=== PATIENT | male | born 1985 | race Caucasian/White ===

== ENCOUNTER 2020-08-07 09:24 | Outpatient (REF) | payer OTHER, SELFPAY ==
[2020-08-09 19:32] LABS: TS Negative Control Passed; TS Panel A 0; TS Panel B 0; TS Positive Control Passed; TSpotTB Negative (SeeBelow)
== END 2020-08-07 09:25 | disposition home or self-care (01) ==
LOC: HO.LAB 09:24
PROVIDERS: PCP Internal Medicine; Visit Provider Internal Medicine
DX: Z11.9 Encounter for screening for infectious and parasitic diseases, unspecified (principal)
CPT/HCPCS: 36415; 86481

== ENCOUNTER 2021-01-01 11:53 | Outpatient (REF) | payer OTHER, SELFPAY ==
[2021-01-01 13:58] LABS: Glucose Urine UA NEG (NEG); Leukocyte Esterase Urine NEG (NEG); Nitrite Urine NEG (NEG); Specific Gravity - Urine 1.015 (1.005-1.025); Urine Blood NEG (NEG); Urine Ketones NEG (NEG); Urine Protein NEG (NEG-TRACE)
[2021-01-01 14:01] LABS: Appearance Urine CLEAR; Color Urine YELLOW
[2021-01-01 14:01] LABS: Hematocrit 46.4 % (42-52); Hemoglobin 15.1 g/dl (14.0-18.0); Mean Corpuscular HGB Conc 32.5 g/dl (31.0-36.0); Mean Corpuscular Hemoglobin 28.3 pg (27.0-33.0); Mean Corpuscular Volume 86.9 fL (80-98); Mean Platelet Volume 9.5 fL (9.4-12.4); Platelet Count 320 X10*3/uL (160-400); Red Blood Count 5.34 X10*6/uL (4.60-5.80); Red Cell Distribution Width 12.3 % (11.0-16.0); White Blood Count 8.1 X10*3/uL (4.8-10.8)
[2021-01-01 14:25] LABS: Alanine Aminotransferase 26 U/L (0-40); Albumin Level 4.6 g/dL (3.5-5.0); Alkaline Phosphatase 56 U/L (39-117); Anion Gap 13 (12-20); Aspartate Amino Transferase 22 U/L (5-37); Bilirubin Direct 0.3 mg/dL (0.0-0.5); Bilirubin Total 0.5 mg/dL (0.0-1.0); Blood Urea Nitrogen 12 mg/dL (9-16); Calcium 9.6 mg/dL (8.4-10.2); Carbon Dioxide 29 mmol/L (22-29); Chloride 105 mmol/L (96-108); Cholesterol 152 mg/dL; Estimated Glomerular Filt Rate > 60; Glucose Random 97 mg/dL (60-115); HDL Cholesterol 32 mg/dL; LDL Cholesterol Calculated 99 mg/dl; Potassium 4.8 mmol/L (3.3-5.1); Sodium 142 mmol/L (135-145); Total Protein 7.5 g/dL (6.5-8.0); Triglycerides 105 mg/dL
== END 2021-01-01 11:54 | disposition home or self-care (01) ==
LOC: HO.LAB 11:53
PROVIDERS: PCP Internal Medicine; Visit Provider Internal Medicine
DX: Z00.01 Encounter for general adult medical examination with abnormal findings (principal)
CPT/HCPCS: 36415; 80048; 80061; 80076; 81003; 85027

== ENCOUNTER 2021-03-08 20:52 | Emergency (ER) | payer OTHER, SELFPAY ==
[2021-03-08 21:22] VITALS: BP 130/87; PULSE 65; RESP 16; TEMP 36.9; O2SAT 98; BMI 34.2
--- NOTE | 2021-03-08 21:48 | ED_ITS ---
HPI - Dental/Oral General Chief complaint: Dental/Oral Stated complaint: dental pain Time Seen by Provider: 03/08/21 21:35 Source: patient Mode of arrival: ambulatory Limitations: no limitations History of Present Illness HPI Narrative: 35 y/o male presenting with left upper tooth pain for the last 2 weeks. He is due to see his dentist on 03/17 for extraction of a broken upper left molar. He has been taking Aleve intermittently for pain with brief improvement. Pain is worse when he lays down or eats. He denies facial swelling or fevers. MD Complaint: tooth pain Location: Tooth # Teeth map: 1. #15 - broken decaying tooth Onset (ago): week(s) Duration: constant Severity: severe Severity scale (1-10): 9 Relieving factors: NSAIDs Exacerbating factors: chewing, cold and heat Context: history of dental caries and poor dental care Associated symptoms: gum swelling Treatment prior to arrival: oral analgesic Related Data Previous Rx's Medication Instructions Recorded hydrocortisone 1 % topical cream 1 appl [place] DAILY 14 Days #28.4 g 01/16/21 with perineal applicator ibuprofen 800 mg tablet 800 mg PO Q8H PRN #15 tab 03/08/21 penicillin V potassium 500 mg 500 mg PO TID 7 Days #21 tab 03/08/21 tablet tramadol 50 mg tablet 50 mg PO Q8H PRN #7 tab 03/08/21 Allergies Allergy/AdvReac Type Severity Reaction Status Date / Time No Known Allergies Allergy Verified 03/08/21 21:22 Review of Systems Constitutional: Constitutional: Denies chills, Denies fever(s) and Reports headache(s) Eyes: Eyes: Reports no additional eye complaints ENT: Reports Normal hearing present, Denies bleeding gums, Reports dental pain , Denies dysphagia, Denies otalgia, Denies facial pain, Reports headache(s), Denies mouth lesions, Reports mouth pain, Denies neck pain, Denies sore throat, Denies throat swelling and Denies tongue swelling Cardiovascular: Cardiovascular: Denies chest pain Respiratory: Respiratory: Denies cough Gastrointestinal: Gastrointestinal: Denies dysphagia, Denies nausea and Denies vomiting Musculoskeletal: Musculoskeletal: Denies neck pain Neurologic: Reports Normal hearing present and Reports headache(s) Allergic/Immunologic: Allergic/Immunologic: Denies throat swelling and Denies tongue swelling PMF Past Medical History Medical History Bloody stools Blurry vision Hemorrhoid History of hypoglycemia Mood disorder Obesity Surgical History History of tooth extraction Family History Family History Mother No problems noted. Father No problems noted. Social History Social History (Updated 01/16/21 @ 08:37 by Dionne Dixon MD) Housing: House Alcohol intake: never Patient Tobacco Use Status: Never used Tobacco Tobacco use type: Cigarette e-Cigarette/Vaping Use: Never Used Second Hand Smoke Exposure: No Advance Directives: No service: No Current occupational status: employed Current occupational exposures/hazards: No Physical Exam Vital Signs: Vital Signs: Last Vital Signs Temp 98.5 F 03/08/21 21:22 Pulse 65 03/08/21 21:22 Resp 16 03/08/21 21:22 BP 130/87 03/08/21 21:22 Pulse Ox 98 03/08/21 21:22 Body Mass Index 34.2 Const: General: cooperative, healthy appearing, comfortable and no acute distress Nutritional Appearance: average body habitus Orientation/consciousness: patient oriented x3 Limitations: no limitations HENMT: Head: Yes normal to inspection, Yes normocephalic and Yes atraumatic Ears: hearing grossly normal bilaterally and external ears normal General nose exam: Normal external nose present and Normal nares present Face and sinus: Yes normal facial exam and Yes face symmetric Mouth: Normal oral and palatal mucosa present, lip normal, tongue normal, oropharynx normal and moist mucous membranes Teeth and gingiva: abnormal tooth and associated gingiva upp er left second molar tender, with associated gingival edema and enamel fractured and gingiva abnormal edematous and tender; Negative for without any purulent discharge Throat: Yes posterior oropharynx normal, Yes tonsils normal and Yes uvula midline Eyes: General: appearance normal, both eyes and all related structures Neck: Neck: Yes normal visual inspection and Yes no lymphadenopathy Chest: Chest palpation & inspection: normal inspection of the chest Resp: Effort & Inspection: normal respiratory effort and able to speak in complete sentences Skin: General skin exam: no rashes or lesions noted Neuro: General: patient oriented x3, gait normal and moves all extremities Cranial nerves: Yes Normal hearing present Extrem: General: Yes normal to inspection and Yes full ROM Psych: Appearance: grossly normal and well kempt Mental Status: mental status grossly normal Speech and movement: Normal speech and movement present Course Course Course Narrative: 35 y/o male presenting with left upper molar pain x2 weeks, due for extraction 03/17. No evidence of abscess on exam. Will treat with abx, NSAID and pain medication until he can be seen by his dentist. Stable for d/c home, patient agrees with plan. Critical Care Time Critical Care Time Critical Care Time: No Discharge Plan Discharge Clinical Impression: Toothache Patient Disposition: Home, Self-Care Instructions: Toothache (ED) Additional Instructions: Take all of the the prescribed medications as directed Also recommend taking Tylenol 1,000 mg every 6 hours, maximum dose is 4,000 mg in a 24 hour period. Recommend over the counter Orajel - topical pain medication to help numb the tooth Follow up with your dentist as scheduled on 03/17/21 If you develop new or worsening symptoms call 911 or come back to the ER for fur ther evaluation. Prescriptions: New ibuprofen 800 mg tablet 800 mg PO Q8H PRN (Reason: pain) Qty: 15 RF: 0 penicillin V potassium 500 mg tablet 500 mg PO TID 7 Days Qty: 21 RF: 0 tramadol 50 mg tablet 50 mg PO Q8H PRN (Reason: pain) Qty: 7 RF: 0 No Action hydrocortisone 1 % cream with perineal applicator 1 appl [place] DAILY 14 Days Qty: 28.4 RF: 2
== END 2021-03-08 22:40 | disposition home or self-care (01) ==
PROVIDERS: Emergency Provider Emergency Medicine; PCP Internal Medicine
DX: K08.89 Other specified disorders of teeth and supporting structures (principal)
CPT/HCPCS: 99283

== ENCOUNTER 2021-11-19 07:03 | Outpatient (REF) | payer OTHER, SELFPAY ==
[2021-11-19 07:17] LABS: MANUAL DIFF FLAG NO
[2021-11-19 07:30] LABS: Basophils Percent Auto 0.5 % (0-2); Eosinophils Absolute Auto 0.1 X10*3/uL (0.0-0.4); Eosinophils Percent Auto 1.2 % (0-4); Hematocrit 47.9 % (42.0-52.0); Hemoglobin 15.9 g/dl (14.0-18.0); Imm Gran Abs Auto 0.01 X10*3/uL (0.00-0.03); Imm Gran Pct Auto 0.1 % (0.0-0.4); Lymphocytes Absolute Auto 2.6 X10*3/uL (1.2-4.9); Lymphocytes Percent Auto 32.2 % (20-40); Mean Corpuscular HGB Conc 33.2 g/dl (31.0-36.0); Mean Corpuscular Volume 84.5 fL (80.0-98.0); Mean Platelet Volume 8.9 fL (9.4-12.4); Monocytes Absolute Auto 0.6 X10*3/uL (0.1-1.2); Monocytes Percent Auto 7.8 % (2-11); Neutrophils Absolute Auto 4.8 x10*3/uL (2.0-8.3); Neutrophils Percent Auto 58.2 % (45-73); Platelet Count 308 X10*3/uL (160-400); Red Blood Count 5.67 X10*6/uL (4.60-5.80); Red Cell Distribution Width 12.2 % (11.0-16.0); White Blood Count 8.2 X10*3/uL (4.8-10.8)
[2021-11-19 07:58] LABS: Alanine Aminotransferase 35 U/L (0-40); Albumin Level 4.5 g/dL (3.5-5.0); Alkaline Phosphatase 52 U/L (39-117); Anion Gap 10 (12-20); Aspartate Amino Transferase 23 U/L (5-37); Bilirubin Total 0.7 mg/dL (0.0-1.0); Blood Urea Nitrogen 12 mg/dL (9-16); Calcium 9.7 mg/dL (8.4-10.2); Carbon Dioxide 31 mmol/L (22-29); Chloride 104 mmol/L (96-108); Cholesterol 166 mg/dL; Estimated Glomerular Filt Rate > 60; Glucose Fasting 99 mg/dL (60-99); HDL Cholesterol 34 mg/dL; LDL Cholesterol Calculated 111 mg/dl; Potassium 4.6 mmol/L (3.3-5.1); Sodium 140 mmol/L (135-145); Total Protein 6.9 g/dL (6.5-8.0); Triglycerides 105 mg/dL
[2021-11-19 08:19] LABS: PSA,Total (Free>4and<10) 0.37 ng/mL (0.00-4.00)
== END 2021-11-19 07:04 | disposition home or self-care (01) ==
LOC: HO.LAB 07:03
PROVIDERS: PCP Internal Medicine; Visit Provider Internal Medicine
DX: E66.9 Obesity, unspecified (principal); Z12.5 Encounter for screening for malignant neoplasm of prostate
CPT/HCPCS: 36415; 80053; 80061; 84153; 85025

== ENCOUNTER → 2021-12-23 09:59 | Outpatient (REF) | payer OTHER, SELFPAY | LOC: HO.SL 09:59 | PROVIDERS: PCP Internal Medicine; Visit Provider Internal Medicine | DX: G47.33 Obstructive sleep apnea (adult) (pediatric) (principal); R40.0 Somnolence | CPT/HCPCS: 95806 ==

== ENCOUNTER 2022-01-27 15:38 | Outpatient (REF) | payer OTHER, SELFPAY ==
--- NOTE | ~2022-01-27 | XR_ITS ---
EXAMINATION: XR SPINE, CERVICAL XR SPINE, THORACIC XR SPINE, LUMBAR CLINICAL INFORMATION: Low back pain. COMPARISON: None TECHNIQUE: Cervical spine 4 views. Dorsal spine 2 views. Lumbar spine 4 views. FINDINGS: Cervical Spine: There is mild straightening of cervical lordosis. The vertebral heights, alignment and disc heights are normal. There is no visible acute fracture, dislocation or subluxation seen. Dorsal Spine: There is normal thoracic kyphosis. The vertebral heights, alignment and disc heights are normal. There is no acute fracture, dislocation or subluxation. The paravertebral soft tissues are normal. Lumbar Spine: There is normal lumbar lordosis. The vertebral heights, alignment and disc heights are normal. No visible acute fracture, dislocation or subluxation seen. The paravertebral soft tissues are normal. XR/XR cervical spine 2V IMPRESSION: Unremarkable cervical spine exam except for mild straightening of cervical lordosis. Unremarkable dorsal spine exam. Unremarkable lumbar spine exam.
--- NOTE | ~2022-01-27 | XR_ITS ---
EXAMINATION: XR SPINE, CERVICAL XR SPINE, THORACIC XR SPINE, LUMBAR CLINICAL INFORMATION: Low back pain. COMPARISON: None TECHNIQUE: Cervical spine 4 views. Dorsal spine 2 views. Lumbar spine 4 views. FINDINGS: Cervical Spine: There is mild straightening of cervical lordosis. The vertebral heights, alignment and disc heights are normal. There is no visible acute fracture, dislocation or subluxation seen. Dorsal Spine: There is normal thoracic kyphosis. The vertebral heights, alignment and disc heights are normal. There is no acute fracture, dislocation or subluxation. The paravertebral soft tissues are normal. Lumbar Spine: There is normal lumbar lordosis. The vertebral heights, alignment and disc heights are normal. No visible acute fracture, dislocation or subluxation seen. The paravertebral soft tissues are normal. XR/XR lumbar spine 2-3V IMPRESSION: Unremarkable cervical spine exam except for mild straightening of cervical lordosis. Unremarkable dorsal spine exam. Unremarkable lumbar spine exam.
--- NOTE | ~2022-01-27 | XR_ITS ---
EXAMINATION: XR SPINE, CERVICAL XR SPINE, THORACIC XR SPINE, LUMBAR CLINICAL INFORMATION: Low back pain. COMPARISON: None TECHNIQUE: Cervical spine 4 views. Dorsal spine 2 views. Lumbar spine 4 views. FINDINGS: Cervical Spine: There is mild straightening of cervical lordosis. The vertebral heights, alignment and disc heights are normal. There is no visible acute fracture, dislocation or subluxation seen. Dorsal Spine: There is normal thoracic kyphosis. The vertebral heights, alignment and disc heights are normal. There is no acute fracture, dislocation or subluxation. The paravertebral soft tissues are normal. Lumbar Spine: There is normal lumbar lordosis. The vertebral heights, alignment and disc heights are normal. No visible acute fracture, dislocation or subluxation seen. The paravertebral soft tissues are normal. XR/XR thoracic spine 2V IMPRESSION: Unremarkable cervical spine exam except for mild straightening of cervical lordosis. Unremarkable dorsal spine exam. Unremarkable lumbar spine exam.
== END 2022-01-27 15:39 | disposition home or self-care (01) ==
LOC: HO.XRAY 15:38
PROVIDERS: PCP Internal Medicine; Visit Provider Internal Medicine
DX: M54.6 Pain in thoracic spine (principal); M54.2 Cervicalgia; M54.50 Low back pain, unspecified; E66.9 Obesity, unspecified; G47.33 Obstructive sleep apnea (adult) (pediatric); G47.34 Idiopathic sleep related nonobstructive alveolar hypoventilation
CPT/HCPCS: 72040; 72070; 72100; 99202

== ENCOUNTER → 2022-03-11 21:21 | Outpatient (REF) | payer OTHER, SELFPAY | LOC: HO.SL 21:21 | PROVIDERS: Visit Provider Internal Medicine | DX: G47.33 Obstructive sleep apnea (adult) (pediatric) (principal) | CPT/HCPCS: 95811 ==

== ENCOUNTER → 2022-04-06 16:05 | Outpatient (BNVA) | payer OTHER, SELFPAY | PROVIDERS: PCP Internal Medicine; Visit Provider Internal Medicine | DX: G47.33 Obstructive sleep apnea (adult) (pediatric) (principal); G47.34 Idiopathic sleep related nonobstructive alveolar hypoventilation; E66.9 Obesity, unspecified; Z68.33 Body mass index [BMI] 33.0-33.9, adult | CPT/HCPCS: 99212 ==

== ENCOUNTER → 2022-07-15 11:53 | Outpatient (BNVA) | payer OTHER, SELFPAY | PROVIDERS: PCP Internal Medicine; Visit Provider Dietitian, Registered | DX: E66.9 Obesity, unspecified (principal); Z68.32 Body mass index [BMI] 32.0-32.9, adult | CPT/HCPCS: 97802 ==

== ENCOUNTER → 2022-08-26 11:05 | Outpatient (BNVA) | payer OTHER, SELFPAY | PROVIDERS: PCP Internal Medicine; Visit Provider Dietitian, Registered | DX: E66.9 Obesity, unspecified (principal); Z68.34 Body mass index [BMI] 34.0-34.9, adult; Z71.3 Dietary counseling and surveillance | CPT/HCPCS: 97803 ==

== ENCOUNTER → 2022-10-15 14:54 | Outpatient (BNVA) | payer OTHER, SELFPAY | PROVIDERS: PCP Internal Medicine; Visit Provider Urology | DX: R35.1 Nocturia (principal); N39.44 Nocturnal enuresis; G47.33 Obstructive sleep apnea (adult) (pediatric); E66.9 Obesity, unspecified | CPT/HCPCS: 99202 ==

== ENCOUNTER 2023-05-19 16:16 | Outpatient (AMB) | payer OTHER, SELFPAY ==
[2023-05-19 16:25] VITALS: BP 134/82; PULSE 75; O2SAT 98; BMI 33.1
--- NOTE | 2023-05-19 16:25 | A.OFFPC_ITS ---
Vital Signs 05/19/23 16:25 Height 6 ft 2 in Weight 258 lb 0.8 oz BMI 33.1 BP 134/82 Blood Pressure Location Lt brachial Position Sitting Pulse 75 Pulse Source Pulse Oximeter Pulse Oximetry (%) 98 Oxygen Delivery Method Room Air Intake Visit Reasons: Physical exam Intake Note: Patient is here today for a physical. Poolroom Table Attendant Required: Yes Poolroom Table Attendant Language: Slovak Allergies No Known Allergies Allergy (Verified 05/19/23 16:40) Medication List - Last Reconciled 05/19/23 by MEG Castillo ascorbate calcium (vitamin C) 500 mg PO DAILY omega-3 fatty acids 500 mg PO DAILY Tobacco use date assessed: 05/19/23 Dental Screening Dental Screen Date: 05/19/23 Did you have a dental visit in the last 12 months?: No Did you have a dental problem in the last 6 months where you did not have access to dental care?: No HPI Physical exam HPI Details Patient is a 37-year-old male who presents today for physical exam. Patient of Dr. Martel. Medical history significant for obesity, mood disorder- patient reports seeing therapist, OLIVIA-not on CPAP anymore-patient denies snoring-he did not like using CPAP-does not see pulmonology anymore. Today we discussed patient's need for tetanus vaccine, he would like to hold off. Patient requested referral for an eye exam. In addition, patient reports right elbow pain for the past 1 month, denies injury, pain worse with range of motion, no numbness or tingling, did not use anything for pain. Patient is a Slovak- speaking and LU Frias was helping with interpretation. Patient was encouraged to complete his blood work. [facility] Medical History Nocturia Nocturnal enuresis Urinary incontinence Nocturnal hypoxemia OLIVIA (obstructive sleep apnea) Right arm pain Obesity (BMI 35.0-39.9 without comorbidity) Daytime sleepiness Blurry vision Mood disorder History of hypoglycemia Bloody stools Hemorrhoid Obesity Surgical History History of tooth extraction Family History Mother No problems noted. Father No problems noted. Social History Housing: House Alcohol intake: never Patient Tobacco Use Status: Never used Tobacco e-Cigarette/Vaping Use: Never Used Second Hand Smoke Exposure: No service: No Current occupational status: employed Current occupational exposures/hazards: No Cognitive needs: No Hearing needs: No Vision needs: No Questionnaire PHQ-9 Over the last 2 weeks, how often have you been bothered by any of the following problems? 1. Little interest or pleasure in doing things: not at all 2. Feeling down, depressed, or hopeless: not at all 3. Trouble falling or staying asleep, or sleeping too much: not at all 4. Feeling tired or having little energy: not at all 5. Poor appetite or overeating: not at all 6. Feeling bad about yourself - or that you are a failure or have let yourself or your family down: not at all 7. Trouble concentrating on things, such as reading the newspaper or watching television: not at all 8. Moving or speaking so slowly that other people could have noticed. Or the opposite - being so fidgety or restless that you have been moving around a lot more than usual: not at all 9. Thoughts that you would be better off or of hurting yourself in some way: not at all Total score: 0 Depression Screening Interpretation: Negative Depression Screening Done: Yes 95364 - PHQ-9 Billing: Yes Source: Developed by Drs. Christiano Dawkins, Stacey Cuevas, Oniel Mcgraw and colleagues, with an educational keri from [employer]. Thrive Questionnaire Date Thrive assessed: 07/29/22 AUDIT C Alcohol Use Questionnaire (AUDIT-C) 1. How often do you have a drink containing alcohol?: Never Total Score: 0 Score Reviewed/Action Taken: No LISY-7 AMB Questionnaire LISY-7 Date LISY - 7 assessed: 05/19/23 Feeling nervous, anxious, or on edge: 0 = Not at all Not being able to stop or control worryin = Not at all Worrying too much about different things: 0 = Not at all Trouble relaxin = Not at all Being so restless that it is hard to sit still: 0 = Not at all Becoming easily annoyed or irritable: 0 = Not at all Feeling afraid as if something awful might happen: 0 = Not at all Total LISY-7 score (0-4 normal; 5-9 mild; 10-14 moderate; 15-21 severe): 0 Source: Developed by Drs. Christiano Dawkins, Stacey Cuevas, Oniel Mcgraw and colleagues, with an educational keri from [employer]. LISY-7 Assessment Billing LISY-7 Assessment Tool: LISY-7 Assessment 13557 Review of Systems Const Denies body aches, Denies chills, Denies fever(s) and Denies headache(s) Eyes Denies change in vision ENT Denies dizziness, Denies otalgia, Denies headache(s), Denies nasal discharge, Denies sinus pain and Denies sore throat Card Denies chest pain, Denies edema, Denies lightheadedness and Denies dyspnea Resp Denies cough, Denies dyspnea and Denies wheezing GI Denies abdominal pain, Denies constipation, Denies diarrhea, Denies nausea and Denies vomiting Denies dysuria Musc Denies myalgias, Reports arthralgias, Denies numbness and Denies tingling Skin/Breast Denies rash Neuro Denies dizziness, Denies headache(s), Denies numbness and Denies tingling Aller/Immun Denies wheezing Physical exam (Primary Care) Vital Signs: Last Vital Signs Pulse 75 05/19/23 16:25 BP 134/82 05/19/23 16:25 Pulse Ox 98 05/19/23 16:25 Oxygen Delivery Method Room Air 05/19/23 16:25 BMI result Body Mass Index 33.1 Tobacco/Smoking Status: Tobacco use Status Tobacco use date assessed 05/19/23 05/19/23 16:28 Patient Tobacco Use Status Never used Tobacco 05/19/23 16:28 Tobacco use type 07/14/22 15:49 e-Cigarette/Vaping Use Never Used 05/19/23 16:28 PHQ-9: PHQ-9 Score PHQ-9: Total score 0 05/19/23 16:30 Depression Screening Interpretation: Negative Thrive Assessment: Date of Thrive Assessment Date Thrive assessed 07/29/22 05/19/23 16:28 Const General: cooperative and no acute distress Orientation/consciousness: patient oriented x3 HENMT Head: Yes normocephalic and Yes atraumatic Ears: TM's normal bilaterally Face and sinus: Yes sinuses nontender Mouth: oropharynx normal and moist mucous membranes Throat: Yes posterior oropharynx normal Eyes General: appearance normal, both eyes and all related structures Pupils: Equal, round and reactive pupils present EOM: EOMs intact bilaterally Neck Neck: Yes normal visual inspection, Yes full ROM and Yes no lymphadenopathy Thyroid: Thyroid normal Resp Effort & Inspection: normal respiratory effort and able to speak in complete sentences Auscultation: clear to auscultation bilaterally, no crackles, no rales, no rhonchi and no wheezes Cardio Rate: regular rate Rhythm: regular rhythm Heart sounds: S1 normal heart sound present, S2 normal heart sound present and no murmurs GI Palpation (GI): Soft to palpation, not firm, nontender, no guarding, not rigid and no hepatosplenomegaly Auscultation: normal bowel sounds General: No CVA tenderness Back/Spine/Pelvis Back: No CVA tenderness Skin General skin exam: no rashes or lesions noted Neuro General: patient oriented x3 Cranial nerves: Yes Equal, round and reactive pupils present Gait exam (Neuro): Normal gait present Extrem General: Yes full ROM and No edema Right upper extremity: elbow/forearm Details: normal to inspection and abnormal ROM (Pain with range of motion); no tenderness, no swelling, no ecchymosis and no crepitus Assessment and Plan Assessment & Plan (1) Right elbow pain: Code(s): M25.521 - Pain in right elbow Plan: Suspect lateral epicondylitis Will refer to OT Start ibuprofen 600 mg every 8 hours as needed Follow-up if no improvement after OT Encouraged heat/cold packs p.r.n. (2) Eye exam, routine: Code(s): Z01.00 - Encounter for examination of eyes and vision without abnormal findings (3) OLIVIA (obstructive sleep apnea): Comment: HE HAS RATHER SEVERE DEGREE OF OBSTRUCTIVE SLEEP APNEA WITH TOTAL SLEEP TIME AHI 64. ALONG WITH HYPOXEMIA. HE DID HAVE CPAP TITRATION AND SURPRISINGLY HE REQUIRED ONLY PRESSURE OF 8 CM. HE DID NOT REQUIRE OXYGEN . AFTER EXPLAINING TO HIM, WILL GO AHEAD AND ORDER CPAP DEVICE WITH PRESSURE OF 8 CM USING NASAL PILLOWS. ALSO INSTRUCTED TO USE DISTILLED WATER IN THE TANK FOR HUMIDIFICATION. WITH THE HELP OF THE FORMAL SERVICE WAITER ALL POSSIBLE INSTRUCTIONS WERE GIVEN TO HIM, AND ALL HIS QUESTIONS WERE ANSWERED. Code(s): G47.33 - Obstructive sleep apnea (adult) (pediatric) Plan: Denies snoring, not on CPAP anymore, does not see pulmonology anymore (4) Physical exam: Code(s): Z00.00 - Encounter for general adult medical examination without abnormal findings Plan: Repeat in 1 year Patient was encouraged to complete his blood work (5) Mood disorder: Code(s): F39 - Unspecified mood [affective] disorder Plan: Followed by therapist (6) Obesity: Code(s): E66.9 - Obesity, unspecified Qualifiers: Obesity classification: adult class 1 (BMI 30 - 34.9) Serious obesity comorbidity presence: without serious comorbidity Body mass index: BMI 33.0- 33.9 Orders: Orders OT Evaluation and Treatment Today M25.521 - Pain in right elbow Referrals Ophthalmology Referral Z01.00 - Encounter for examination of eyes and vision without abnormal findings Medications: New ibuprofen 600 mg PO Q8H PRN 20 tabs 0RF pain M25.521 - Pain in right elbow Coding Level of Care Code Est Pt Prev Care 18-39y([id number]) Diagnoses Right elbow pain M25.521 Eye exam, routine Z01.00 OLIVIA (obstructive sleep apnea) G47.33 Physical exam Z00.00 Mood disorder F39 Obesity E66.9 Obesity classification: adult class 1 (BMI 30 - 34.9) Serious obesity comorbidity presence: without serious comorbidity Body mass index: BMI 33.0-33.9 Additional Codes LISY-7 Assessment Billing - LISY-7 Assessment Tool: LISY-7 Assessment [id number] ([id number])
== END 2023-05-19 17:03 | disposition home or self-care (01) ==
PROVIDERS: PCP Internal Medicine; Visit Provider Nurse Practitioner Family
DX: Z00.00 Encounter for general adult medical examination without abnormal findings (principal); F39 Unspecified mood [affective] disorder; E66.9 Obesity, unspecified; Z68.33 Body mass index [BMI] 33.0-33.9, adult; M25.521 Pain in right elbow; G47.33 Obstructive sleep apnea (adult) (pediatric)
CPT/HCPCS: 99395

== ENCOUNTER 2023-07-20 15:30 | Outpatient (RCR) | payer OTHER, SELFPAY ==
--- NOTE | 2023-06-22 16:01 | MHC.OT.EP ---
[address] [phone] Occupational Therapy Plan of Care Patient Name: Kenyon Plascencia Date of Evaluation: 06/22/23 Diagnosis: Right elbow pain Pain Location: 3/10 right lateral elbow . ache Pain Score: 3 Pain Scale Used: Numeric (0 - 10) Aggravating Factors: Static posture, reaching and gripping with right hand . Lifting water mug Alleviating Factors: Ibuprofen Assessment: Pt is a 37 yo male with right lateral elbow pain over the past several months with lifting and reaching and gripping with his right dominant hand. Today he presents with S+S consistent with a diagnosis of right lateral epicondylitis. 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 Thank you once again for your referral.
--- NOTE | 2023-08-06 15:45 | MHC.OT.DC ---
[address] [phone] F: [phone] Occupational Therapy Discharge Note Patient Name: Kenyon Plascencia Provider: Pdamini Marinelli Diagnosis: Right elbow pain Date of Surgery: Date of Evaluation: 06/22/23 Date of Discharge: 08/06/23 Treatments to Date: 5 Cancellations to Date: No Shows to Date: 3 Discharge Status: Recommend MD Follow-up Visit Non-compliance Discharge Summary: Patient is making good progress he reports 3/10 pain. He is independent with his HEP and requested to decrease frequency of OT to 1x a week. Electronically Signed By: Ofelia Loredo OT CHT CLT Reviewed/agree with student documentation: Therapist: Please Sign and return to therapist, thank you for your referral.
== END 2023-08-06 15:46 | disposition home or self-care (01) ==
LOC: HO.OT 15:30
PROVIDERS: PCP Internal Medicine; Visit Provider Nurse Practitioner Family
DX: M25.521 Pain in right elbow (principal)
CPT/HCPCS: 97033; 97035; 97110; 97140; 97165

== ENCOUNTER 2023-08-09 15:54 | Outpatient (AMB) | payer OTHER, SELFPAY ==
[2023-08-09 16:13] VITALS: BP 134/82; PULSE 78; O2SAT 96; BMI 33.5
--- NOTE | 2023-08-09 16:13 | MHC.PC.OV ---
Vital Signs 08/09/23 16:13 Height 6 ft 2 in Weight 261 lb 2 oz BMI 33.5 BP 134/82 Blood Pressure Location Lt brachial Position Sitting Pulse 78 Pulse Source Pulse Oximeter Pulse Oximetry (%) 96 Oxygen Delivery Method Room Air Intake Visit Reasons: discuss referral for vertigo Furniture Packer Required: Yes Furniture Packer Language: Maltese Accompanied by: Self / Same As Patient Allergies No Known Allergies Allergy (Verified 08/09/23 16:18) Medication List - Last Reconciled 08/09/23 by Vipul Oneal PA-C ascorbate calcium (vitamin C) 500 mg PO DAILY ibuprofen 600 mg PO Q8H PRN omega-3 fatty acids 500 mg PO DAILY Tobacco use date assessed: 08/09/23 Dental Screening Dental Screen Date: 08/09/23 Did you have a dental visit in the last 12 months?: Yes Did you have a dental problem in the last 6 months where you did not have access to dental care?: No Was dental information given to patient?: Patient has dentist HPI discuss referral for vertigo HPI Details Patient is a 37-year-old male here today for a problem visit. He reports as of late noticing some dizziness with certain head movements and lying down on his right side. He has had these symptoms in the past which were treated with vestibular therapy. He would like a referral back to vestibular therapy. [facility] Medical History Nocturia Nocturnal enuresis Urinary incontinence Nocturnal hypoxemia OLIVIA (obstructive sleep apnea) Right arm pain Obesity (BMI 35.0-39.9 without comorbidity) Daytime sleepiness Blurry vision Mood disorder History of hypoglycemia Bloody stools Hemorrhoid Obesity Surgical History History of tooth extraction Family History Mother No problems noted. Father No problems noted. Social History Housing: House Alcohol intake: never Patient Tobacco Use Status: Never used Tobacco e-Cigarette/Vaping Use: Never Used Second Hand Smoke Exposure: No service: No Current occupational status: employed Current occupational exposures/hazards: No Cognitive needs: No Hearing needs: No Vision needs: No Questionnaire PHQ-9 Over the last 2 weeks, how often have you been bothered by any of the following problems? 1. Little interest or pleasure in doing things: not at all 2. Feeling down, depressed, or hopeless: not at all 3. Trouble falling or staying asleep, or sleeping too much: not at all 4. Feeling tired or having little energy: not at all 5. Poor appetite or overeating: not at all 6. Feeling bad about yourself - or that you are a failure or have let yourself or your family down: not at all 7. Trouble concentrating on things, such as reading the newspaper or watching television: not at all 8. Moving or speaking so slowly that other people could have noticed. Or the opposite - being so fidgety or restless that you have been moving around a lot more than usual: not at all 9. Thoughts that you would be better off or of hurting yourself in some way: not at all Total score: 0 Depression Screening Interpretation: Negative Depression Screening Done: Yes 47623 - PHQ-9 Billing: Yes Source: Developed by Drs. Christiano Dawkins, Stacey Cuevas, Oniel Mcgraw and colleagues, with an educational keri from [employer]. Thrive Questionnaire Date Thrive assessed: 08/09/23 I am a: Patient What is your living situation today?: I have a steady place to live Within the past 12 months, did the food you bought not last and you didn't have the money to get more?: Never true Within the past 12 months, did you worry whether your food would run out before you got money to buy more?: Never true Do you have trouble paying for medicines?: No Do you have trouble getting transportation to medical appointments?: No Do you have trouble paying your heating and electricity bill?: No Do you have trouble taking care of your child, family member or friend?: No Do you have trouble with day-to-day activities such as bathing, preparing meals, shopping, managing finances, etc.?: No Are you currently unemployed and looking for a job?: No Are you interested in more education?: No Please select the resources that you would like help with: None Currently or been in a relationship where the following occur: no concerns reported THRIVE Score: 0 AUDIT C Alcohol Use Questionnaire (AUDIT-C) 1. How often do you have a drink containing alcohol?: Never Total Score: 0 Score Reviewed/Action Taken: No LISY-7 AMB Questionnaire LISY-7 Date LISY - 7 assessed: 08/09/23 Feeling nervous, anxious, or on edge: 0 = Not at all Not being able to stop or control worryin = Not at all Worrying too much about different things: 0 = Not at all Trouble relaxin = Not at all Being so restless that it is hard to sit still: 0 = Not at all Becoming easily annoyed or irritable: 0 = Not at all Feeling afraid as if something awful might happen: 0 = Not at all Total LISY-7 score (0-4 normal; 5-9 mild; 10-14 moderate; 15-21 severe): 0 Source: Developed by Drs. Christiano Dawkins, Stacey Cuevas, Oniel Mcgraw and colleagues, with an educational keri from [employer]. LISY-7 Assessment Billing LISY-7 Assessment Tool: LISY-7 Assessment 73542 Review of Systems Const Denies headache(s) Eyes Denies loss of vision ENT Reports vertigo, Reports dizziness, Denies headache(s) and Denies sore throat Card Denies chest pain, Denies leg edema and Denies lightheadedness Resp Denies cough, Denies hemoptysis and Denies wheezing GI Denies abdominal pain, Denies melena, Denies constipation, Denies diarrhea and Denies vomiting Denies dysuria, Denies urinary frequency and Denies urinary urgency Musc Denies arthralgias, Denies joint swelling, Denies numbness and Denies tingling Neuro Denies Abnormal speech present, Denies behavioral changes, Reports vertigo, Reports dizziness, Denies headache(s), Denies loss of vision, Denies memory loss, Denies numbness and Denies tingling Psych Denies anxiety, Denies behavioral changes, Denies depression, Denies memory loss and Denies panic attacks Khai/Lymph Denies easy bleeding and Denies easy bruising Aller/Immun Denies wheezing Physical exam (Primary Care) Vital Signs: Last Vital Signs Pulse 78 08/09/23 16:13 BP 134/82 08/09/23 16:13 Pulse Ox 96 08/09/23 16:13 Oxygen Delivery Method Room Air 08/09/23 16:13 BMI result Body Mass Index 33.5 Tobacco/Smoking Status: Tobacco use Status Tobacco use date assessed 08/09/23 08/09/23 16:19 Patient Tobacco Use Status Never used Tobacco 08/09/23 16:19 Tobacco use type 07/14/22 15:49 e-Cigarette/Vaping Use Never Used 08/09/23 16:19 PHQ-9: PHQ-9 Score PHQ-9: Total score 0 08/09/23 16:19 Depression Screening Interpretation: Negative Thrive Assessment: Date of Thrive Assessment Date Thrive assessed 08/09/23 08/09/23 16:19 Currently or been in a relationship where the following occur: no concerns reported Const General: healthy appearing, no acute distress, alert and awake Nutritional Appearance: well nourished Orientation/consciousness: oriented to person, oriented to place and oriented to time HENMT Ears: TM's normal bilaterally General nose exam: Normal nasal mucous membranes and turbinates present Eyes Conjunctivae: conjunctivae normal Sclerae: sclerae normal Pupils: Equal, round and reactive pupils present Neck Neck: Yes no lymphadenopathy and Yes no JVD Thyroid: Thyroid normal Carotids: no bruits Resp Effort & Inspection: normal respiratory effort and not tachypneic Auscultation: no crackles, no rales, no rhonchi and no wheezes Cardio Rate: regular rate Rhythm: regular rhythm Heart sounds: no murmurs and normal S1 and S2 GI Palpation (GI): Soft to palpation, nontender, no hepatomegaly and no splenomegaly Auscultation: normal bowel sounds Skin General skin exam: no rashes or lesions noted and dry skin Neuro General: oriented to person, oriented to place and oriented to time Cranial nerves: Yes Equal, round and reactive pupils present Speech: No Abnormal speech present Gait exam (Neuro): Normal gait present Motor exam (neuro): no tremor noted Extrem Right upper extremity: full ROM Left upper extremity: full ROM Right lower extremity: full ROM; no edema Left lower extremity: full ROM; no edema Psych Mental Status: mental status grossly normal Speech and movement: Normal speech and movement present Affect: normal affect Attitude: cooperative Thought process: Normal thought process present Assessment and Plan Assessment & Plan (1) BPPV (benign paroxysmal positional vertigo): Code(s): H81.10 - Benign paroxysmal vertigo, unspecified ear Qualifiers: Laterality: unspecified laterality Qualified Code(s): H81.10 - Benign paroxysmal vertigo, unspecified ear Plan: Patient's signs and symptoms most consistent with benign positional vertigo. Will refer to vestibular therapy. Will give meclizine to use on a p.r.n. basis Orders: Orders PT Evaluation and Treatment Today H81.10 - Benign paroxysmal vertigo, unspecified ear Medications: New meclizine 12.5 mg PO TID 5 days PRN 15 tabs 0RF dizziness H81.10 - Benign paroxysmal vertigo, unspecified ear Coding Level of Care Code Est Pt Level 3 (60063) Diagnoses Benign paroxysmal positional vertigo, unspecified laterality H81.10 Laterality: unspecified laterality Additional Codes LISY-7 Assessment Billing - LISY-7 Assessment Tool: LISY-7 Assessment 85197 ([id number])
== END 2023-08-09 17:25 | disposition home or self-care (01) ==
PROVIDERS: PCP Internal Medicine; Visit Provider Physician Assistant
DX: H81.11 Benign paroxysmal vertigo, right ear (principal)
CPT/HCPCS: 99213

== ENCOUNTER 2023-09-01 13:40 | Outpatient (RCR) | payer OTHER, SELFPAY ==
[2023-09-01 13:53] VITALS: BP 149/88; PULSE 77
--- NOTE | 2023-09-01 15:46 | MHC.PT.EP ---
[facility] [place] Office [place] [facility] [place] Office [address] [place] [address] [phone] F: [phone] F: [phone] F: [phone] F: [phone] Physical Therapy Plan of Care Date of Evaluation: Date of Surgery: Diagnosis: VERTIGO () Assessment: LUDIVINA IS A PLEASANT 38 YO MALE WHO PRESENTS WITH C/C OF DIZZINESS. WHEN HE LAYS DOWN LOOKING UP AND AND TURNING TO THE RIGHT. HE HAD PREVIOUS SYMPTOMS THAT WERE SIMILAR AND HAD GOOD RESULTS WITH VESTIBULAR THERAPY. UPON EXAM TODAY HE DOES NOT DEMONSTRATES ANY S/S OF BPPV NOR VESTIBULAR HYPOFUNCTION. CERVICAL SPINE WAS R/O WELL. AT THIS TIME HE DOES NOT REQUIRE SKILLED PT BUT IF SYMPTOMS RETURN HE HAS BEEN INSTRUCTED TO RETURN Frequency and Duration: The patient will be seen 2 X WEEK FOR 4 WEEKS Short Term Goals: REASSESS FOR BPPV PRN Heel Buffer Goals: 1. Patient will negotiate community obstacles such as curbs, ramps and open spaces without LOB for a minimum of 1000 feet. 2. Patient will demonstrate functional movement in all planes and directions without provocation of dizziness to show return to PLOF. Treatment Plan: Modalities to reduce pain, spasms and effusion. Manual therapy to restore motion and function. Therapeutic exercise to improve strength and flexibility. Neuromuscular re-education for posture and balance. Therapeutic activities to return to functional activities of daily living. Electronically signed by: RASHIDA THOMAS PT DPT Please sign and return to therapist. Thank you for your referral.
== END 2023-10-25 11:08 | disposition home or self-care (01) ==
LOC: HO.PT 13:40
PROVIDERS: PCP Internal Medicine; Visit Provider Physician Assistant
DX: H81.10 Benign paroxysmal vertigo, unspecified ear (principal)
CPT/HCPCS: 97161

== ENCOUNTER 2024-04-08 09:54 | Outpatient (REF) | payer OTHER, SELFPAY ==
[2024-04-08 11:53] LABS: Alanine Aminotransferase 46 U/L (0-40); Albumin Level 4.5 g/dL (3.5-5.0); Alkaline Phosphatase 51 U/L (39-117); Anion Gap 10 (12-20); Aspartate Amino Transferase 25 U/L (5-37); Bilirubin Total 0.5 mg/dL (0.0-1.0); Blood Urea Nitrogen 10 mg/dL (9-16); Calcium 9.3 mg/dL (8.4-10.2); Carbon Dioxide 29 mmol/L (22-29); Chloride 106 mmol/L (96-108); Cholesterol 160 mg/dL (<200); Estimated Glomerular Filt Rate > 60; Glucose Fasting 95 mg/dL (60-99); HDL Cholesterol 42 mg/dL (>40); LDL Cholesterol Calculated 106 mg/dL (<100); Potassium 4.3 mmol/L (3.3-5.1); Sodium 141 mmol/L (135-145); Total Protein 7.6 g/dL (6.5-8.0); Triglycerides 61 mg/dL (<150)
== END 2024-04-08 09:55 | disposition home or self-care (01) ==
LOC: HO.LAB 09:54
PROVIDERS: PCP Internal Medicine; Visit Provider Internal Medicine
DX: E66.9 Obesity, unspecified (principal)
CPT/HCPCS: 36415; 80053; 80061

== ENCOUNTER 2024-07-19 16:06 | Outpatient (AMB) | payer OTHER, SELFPAY ==
[2024-07-19 16:20] VITALS: BP 132/86; BMI 34.5
--- NOTE | 2024-07-19 16:20 | A.OFFPC_ITS ---
Vital Signs 07/19/24 16:20 Height 6 ft 2 in Weight 269 lb BMI 34.5 BP 132/86 Blood Pressure Location Lt brachial Position Sitting Intake Visit Reasons: LT elbow pain Intake Note: Patient here c/o left elbow pain Director Of Food And Beverage Services Required: No Accompanied by: Self / Same As Patient Allergies No Known Allergies Allergy (Verified 07/19/24 16:28) Medication List - Last Reconciled 07/19/24 by Dionne Dixon MD ascorbate calcium (vitamin C) 500 mg PO DAILY ibuprofen 600 mg PO Q8H PRN omega-3 fatty acids 500 mg PO DAILY Tobacco use date assessed: 07/19/24 Dental Screening Dental Screen Date: 07/19/24 Did you have a dental visit in the last 12 months?: Yes Did you have a dental problem in the last 6 months where you did not have access to dental care?: No Was dental information given to patient?: Patient has dentist HPI HPI Comments History of Present Illness Details This is a 38-year-old male that complains of left elbow pain that started about a month ago. He had the same symptoms on the right elbow are receive occupational therapy with great improvement. Denies previous trauma. Has full active range of motion. Also has very mild transaminitis that could be attributed to obesity and will have an ultrasound of the abdomen. Has some GERD and will have an upper GI series. He is obese with a BMI of 34.5 and was advised to do diet and exercise to reach BMI goal less than 30. [facility] Medical History (Updated 07/19/24 @ 20:34 by Dionne Dixon MD) Nocturnal enuresis Nocturia Urinary incontinence Nocturnal hypoxemia OLIVIA (obstructive sleep apnea) Right arm pain Obesity (BMI 35.0-39.9 without comorbidity) Daytime sleepiness Blurry vision Mood disorder History of hypoglycemia Bloody stools Hemorrhoid Obesity Surgical History History of tooth extraction Family History Mother No problems noted. Father No problems noted. Social History Housing: House Alcohol intake: never Patient Tobacco Use Status: Never used Tobacco e-Cigarette/Vaping Use: Never Used Second Hand Smoke Exposure: No service: No Current occupational status: employed Current occupational exposures/hazards: No Cognitive needs: No Hearing needs: No Vision needs: No Questionnaire PHQ-9 Over the last 2 weeks, how often have you been bothered by any of the following problems? 1. Little interest or pleasure in doing things: not at all 2. Feeling down, depressed, or hopeless: not at all 3. Trouble falling or staying asleep, or sleeping too much: not at all 4. Feeling tired or having little energy: not at all 5. Poor appetite or overeating: not at all 6. Feeling bad about yourself - or that you are a failure or have let yourself or your family down: not at all 7. Trouble concentrating on things, such as reading the newspaper or watching television: not at all 8. Moving or speaking so slowly that other people could have noticed. Or the opposite - being so fidgety or restless that you have been moving around a lot more than usual: not at all 9. Thoughts that you would be better off or of hurting yourself in some way: not at all Total score: 0 Depression Screening Interpretation: Negative Depression Screening Done: Yes 36115 - PHQ-9 Billing: Yes Source: Developed by Drs. Christiano Dawkins, Stacey Cuevas, Oniel Mcgraw and colleagues, with an educational keri from [employer]. Thrive Questionnaire Date Thrive assessed: 07/19/24 I am a: Patient What is your living situation today?: I have a steady place to live Within the past 12 months, did the food you bought not last and you didn't have the money to get more?: Never true Within the past 12 months, did you worry whether your food would run out before you got money to buy more?: Never true Do you have trouble paying for medicines?: No Do you have trouble getting transportation to medical appointments?: No Do you have trouble paying your heating and electricity bill?: No Do you have trouble taking care of your child, family member or friend?: No Do you have trouble with day-to-day activities such as bathing, preparing meals, shopping, managing finances, etc.?: No Are you currently unemployed and looking for a job?: No Are you interested in more education?: No Please select the resources that you would like help with: None Currently or been in a relationship where the following occur: No concerns reported THRIVE Score: 0 AUDIT C Alcohol Use Questionnaire (AUDIT-C) 1. How often do you have a drink containing alcohol?: Never Total Score: 0 Score Reviewed/Action Taken: No LISY-7 AMB Questionnaire LISY-7 Date LISY - 7 assessed: 07/19/24 Feeling nervous, anxious, or on edge: 0 = Not at all Not being able to stop or control worryin = Not at all Worrying too much about different things: 0 = Not at all Trouble relaxin = Not at all Being so restless that it is hard to sit still: 0 = Not at all Becoming easily annoyed or irritable: 0 = Not at all Feeling afraid as if something awful might happen: 0 = Not at all Total LISY-7 score (0-4 normal; 5-9 mild; 10-14 moderate; 15-21 severe): 0 Source: Developed by Drs. Christiano Dawkins, Stacey Cuevas, Oniel Mcgraw and colleagues, with an educational keri from [employer]. LISY-7 Assessment Billing LISY-7 Assessment Tool: LISY-7 Assessment 84049 Review of Systems Const All systems reviewed & are unremarkable except as noted in HPI and below Card Denies chest pain at rest, Denies chest pain with activity, Denies edema, Denies irregular heart rhythm, Denies claudication, Denies dyspnea, Denies dyspnea on exertion, Denies orthopnea, Denies paroxysmal nocturnal dyspnea and Denies slow heart rate Resp Denies cough, Denies dyspnea and Denies dyspnea on exertion GI Denies abdominal pain, Denies change in bowel habits, Denies excessive flatus, Denies nausea and Denies vomiting Musc Reports arthralgias Physical exam (Primary Care) Vital Signs: Last Vital Signs BP 132/86 07/19/24 16:20 BMI result Body Mass Index 34.5 BMI Assessment/Plan discussion: High BMI High, discussed plan: lifestyle, weight reduction, dietary and physical activity Tobacco/Smoking Status: Tobacco use Status Tobacco use date assessed 07/19/24 07/19/24 16:25 Patient Tobacco Use Status Never used Tobacco 07/19/24 16:25 Tobacco use type 07/14/22 15:49 e-Cigarette/Vaping Use Never Used 07/19/24 16:25 PHQ-9: PHQ-9 Score PHQ-9: Total score 0 07/19/24 16:46 Depression Screening Interpretation: Negative Thrive Assessment: Date of Thrive Assessment Date Thrive assessed 07/19/24 07/19/24 16:25 Currently or been in a relationship where the following occur: No concerns reported Resp Effort & Inspection: normal respiratory effort Auscultation: clear to auscultation bilaterally Cardio Jugular venous distension: no JVD Rate: regular rate Rhythm: regular rhythm Heart sounds: S1 normal heart sound present and S2 normal heart sound present Extrem General: Yes full ROM Left upper extremity: elbow/forearm Details: tenderness Office Procedures Flu Questionnaire Does the patient have a severe egg allergy?: No Immunizations Fluarix Triv [id number] (PF) 45 mcg (15 mcg x 3)/0.5 mL IM syringe Performing Provider: Dionne Dixon MD Performing Location: [facility] – [place] [facility] Documented (not given) by: CARLOS Acevedo on 07/19/24 16:46 Reason Not Given: Patient Refused Coding Level of Care Code Est Pt Level 4 (11003) Complex EM visit Add On G2211 Diagnoses Left elbow pain M25.522 Transaminitis R74.01 GERD (gastroesophageal reflux disease) K21.9 Obesity (BMI 30.0-34.9) E66.811 Additional Codes LISY-7 Assessment Billing - LISY-7 Assessment Tool: LISY-7 Assessment 82226 ([id number]) PHQ-9 - 72518 - PHQ-9 Billing: Yes ([id number]) Time Spent (min) 20 Assessment & Plan Assessment & Plan (1) Left elbow pain: Code(s): M25.522 - Pain in left elbow Category: Medical (2) Transaminitis: Code(s): R74.01 - Elevation of levels of liver transaminase levels Category: Medical (3) GERD (gastroesophageal reflux disease): Code(s): K21.9 - Gastro-esophageal reflux disease without esophagitis Category: Medical (4) Obesity (BMI 30.0-34.9): Code(s): E66.811 - Obesity, class 1 Category: Medical Plan For elbow pain x-ray was order and he will start occupational therapy. For transaminitis ultrasound of the abdomen was order. For GERD upper GI series pending. He is obese with a BMI of 34.5 and was advised to do diet and exercise to reach BMI goal less than 30. Orders: Orders XR elbow LT 2V Today M25.522 - Pain in left elbow US abdomen comp w elastography Today R74.01 - Elevation of levels of liver transaminase levels Influenza [id number] Immunization Today Z23 - Encounter for immunization
== END 2024-07-19 16:43 | disposition home or self-care (01) ==
PROVIDERS: PCP Internal Medicine; Visit Provider Internal Medicine
DX: M25.522 Pain in left elbow (principal); R74.01 Elevation of levels of liver transaminase levels; E66.811 Obesity, class 1; Z68.34 Body mass index [BMI] 34.0-34.9, adult; K21.9 Gastro-esophageal reflux disease without esophagitis

== ENCOUNTER → 2024-07-19 16:06 | Outpatient (BNVA) | payer OTHER, SELFPAY | PROVIDERS: PCP Internal Medicine; Visit Provider Internal Medicine | DX: M25.522 Pain in left elbow (principal); K21.9 Gastro-esophageal reflux disease without esophagitis; E66.9 Obesity, unspecified; R74.01 Elevation of levels of liver transaminase levels; E66.811 Obesity, class 1; Z68.34 Body mass index [BMI] 34.0-34.9, adult | CPT/HCPCS: 96127; 99212 ==

== ENCOUNTER 2024-08-07 09:03 | Outpatient (AMB) | payer OTHER, SELFPAY ==
[2024-08-07 09:06] VITALS: BP 130/78; BMI 33.6
--- NOTE | 2024-08-07 09:06 | MHC.PC.OV ---
Vital Signs 08/07/24 09:06 Height 6 ft 2 in Weight 262 lb BMI 33.6 BP 130/78 Blood Pressure Location Lt brachial Position Sitting Intake Visit Reasons: annual exam Intake Note: Patient here for an annual physical exam Safety Administrator Required: Yes Safety Administrator Language: Geodetic Engineer Name: Dionne Dixon MD Information Interpreted: non-clinical & clinical Accompanied by: Self / Same As Patient Allergies No Known Allergies Allergy (Verified 08/07/24 09:15) Medication List - Last Reconciled 08/07/24 by Dionne Dixon MD ascorbate calcium (vitamin C) 500 mg PO DAILY ibuprofen 600 mg PO Q8H PRN omega-3 fatty acids 500 mg PO DAILY Tobacco use date assessed: 07/19/24 Dental Screening Dental Screen Date: 07/19/24 HPI HPI Comments History of Present Illness Details The patient is a 38-year-old male presenting for his physical exam with a complaint of headache and cough. The headache reportedly occurs on weekends, particularly Wednesday or Wednesday, and was last experienced the day prior to the visit. It often manifests as a tension-type headache located above, possibly related to waking early during the workweek. While not accompanied by dizziness, the episodes have required the use of analgesics such as Advil liquid gels for relief. The headaches typically resolve with medication within a few hours. Additionally, the patient experiences a cough, suspected to be associated with potential upper respiratory tract irritation or cold. There are no accompanying symptoms such as chest pain, dyspnea, or fever. The cough varies in frequency. The patient also noted that they have not received a tetanus vaccination for over 10 years, although no specifics about symptoms were directly tied to this gap in vaccination history. Past health maintenance measures included laboratory tests in April, which were reported as excellent. COUNT INCLUDES THE [facility] Medical History Nocturnal enuresis Nocturia Urinary incontinence Nocturnal hypoxemia OLIVIA (obstructive sleep apnea) Right arm pain Obesity (BMI 35.0-39.9 without comorbidity) Daytime sleepiness Blurry vision Mood disorder History of hypoglycemia Bloody stools Hemorrhoid Obesity Surgical History History of tooth extraction Family History Mother No problems noted. Father No problems noted. Social History Housing: House Alcohol intake: never Patient Tobacco Use Status: Never used Tobacco e-Cigarette/Vaping Use: Never Used Second Hand Smoke Exposure: No service: No Current occupational status: employed Current occupational exposures/hazards: No Cognitive needs: No Hearing needs: No Vision needs: No Questionnaire PHQ-9 Over the last 2 weeks, how often have you been bothered by any of the following problems? 1. Little interest or pleasure in doing things: not at all 2. Feeling down, depressed, or hopeless: not at all 3. Trouble falling or staying asleep, or sleeping too much: not at all 4. Feeling tired or having little energy: not at all 5. Poor appetite or overeating: not at all 6. Feeling bad about yourself - or that you are a failure or have let yourself or your family down: not at all 7. Trouble concentrating on things, such as reading the newspaper or watching television: not at all 8. Moving or speaking so slowly that other people could have noticed. Or the opposite - being so fidgety or restless that you have been moving around a lot more than usual: not at all 9. Thoughts that you would be better off or of hurting yourself in some way: not at all Total score: 0 Depression Screening Interpretation: Negative Depression Screening Done: Yes 13217 - PHQ-9 Billing: Yes Source: Developed by Drs. Christiano Dawkins, Stacey Cuevas, Oniel Mcgraw and colleagues, with an educational keri from [employer]. Thrive Questionnaire Date Thrive assessed: 08/07/24 I am a: Patient What is your living situation today?: I have a steady place to live Within the past 12 months, did the food you bought not last and you didn't have the money to get more?: Never true Within the past 12 months, did you worry whether your food would run out before you got money to buy more?: Never true Do you have trouble paying for medicines?: I choose not to answer this question Do you have trouble getting transportation to medical appointments?: No Do you have trouble paying your heating and electricity bill?: No Do you have trouble taking care of your child, family member or friend?: No Do you have trouble with day-to-day activities such as bathing, preparing meals, shopping, managing finances, etc.?: No Are you currently unemployed and looking for a job?: No Are you interested in more education?: No Please select the resources that you would like help with: None Currently or been in a relationship where the following occur: I choose not to answer THRIVE Score: 0 AUDIT C Alcohol Use Questionnaire (AUDIT-C) 1. How often do you have a drink containing alcohol?: Never Total Score: 0 Score Reviewed/Action Taken: No LISY-7 AMB Questionnaire LISY-7 Date LISY - 7 assessed: 08/07/24 Feeling nervous, anxious, or on edge: 0 = Not at all Not being able to stop or control worryin = Not at all Worrying too much about different things: 0 = Not at all Trouble relaxin = Not at all Being so restless that it is hard to sit still: 0 = Not at all Becoming easily annoyed or irritable: 0 = Not at all Feeling afraid as if something awful might happen: 0 = Not at all Total LISY-7 score (0-4 normal; 5-9 mild; 10-14 moderate; 15-21 severe): 0 Source: Developed by Drs. Christiano Dawkins, Stacey Cuevas, Oniel Mcgraw and colleagues, with an educational keri from [employer]. LISY-7 Assessment Billing LISY-7 Assessment Tool: LISY-7 Assessment 45206 Review of Systems Const All systems reviewed & are unremarkable except as noted in HPI and below Card Denies chest pain at rest, Denies chest pain with activity, Denies edema, Denies irregular heart rhythm, Denies claudication, Denies dyspnea, Denies dyspnea on exertion, Denies orthopnea, Denies paroxysmal nocturnal dyspnea and Denies slow heart rate Resp Denies cough, Denies dyspnea and Denies dyspnea on exertion GI Denies abdominal pain, Denies change in bowel habits, Denies excessive flatus, Denies nausea and Denies vomiting Denies urinary hesitancy, Denies urinary incontinence and Denies urinary urgency Musc Denies atrophy, Denies deformity and Denies limited range of motion Physical exam (Primary Care) Vital Signs: Last Vital Signs BP 130/78 08/07/24 09:06 BMI result Body Mass Index 33.6 BMI Assessment/Plan discussion: High BMI High, discussed plan: lifestyle, weight reduction, dietary and physical activity Tobacco/Smoking Status: Tobacco use Status Tobacco use date assessed 07/19/24 08/07/24 09:10 Patient Tobacco Use Status Never used Tobacco 08/07/24 09:10 Tobacco use type 07/14/22 15:49 e-Cigarette/Vaping Use Never Used 08/07/24 09:10 PHQ-9: PHQ-9 Score PHQ-9: Total score 0 08/07/24 09:10 Depression Screening Interpretation: Negative Thrive Assessment: Date of Thrive Assessment Date Thrive assessed 08/07/24 08/07/24 09:10 Currently or been in a relationship where the following occur: I choose not to answer HENWA Head: Yes normal to inspection, Yes normocephalic and Yes atraumatic Ears: external ears normal Eyes General: appearance normal, both eyes and all related structures Eyelids: Yes eyelids normal Conjunctivae: conjunctivae normal Neck Neck: Yes normal visual inspection and Yes supple Resp Effort & Inspection: normal respiratory effort Auscultation: clear to auscultation bilaterally Cardio Jugular venous distension: no JVD Rate: regular rate Rhythm: regular rhythm Heart sounds: S1 normal heart sound present and S2 normal heart sound present GI Inspection: Yes normal to inspection Palpation (GI): Soft to palpation and nontender Auscultation: normal bowel sounds Skin General skin exam: no rashes or lesions noted Neuro General: no focal motor deficits Extrem General: Yes full ROM Psych Appearance: grossly normal Coding Level of Care Code Est Pt Level 3 (57240) Est Pt Prev Care 18-39y(98286) Diagnoses Physical exam Z00.00 Tension headache G44.209 Additional Codes PHQ-9 - 57301 - PHQ-9 Billing: Yes ([id number]) LISY-7 Assessment Billing - LISY-7 Assessment Tool: LISY-7 Assessment 60894 ([id number]) Time Spent (min) 33 Assessment & Plan Assessment & Plan (1) Physical exam: Code(s): Z00.00 - Encounter for general adult medical examination without abnormal findings Category: Medical (2) Tension headache: Code(s): G44.209 - Tension-type headache, unspecified, not intractable Category: Medical Plan - Encourage lifestyle modifications for weight management, with discussion on portion sizes and dietary choices - For headaches, consider tension-type headache management options if symptoms persist; include patient preference for [id number] analgesics. - Monitor cough; address if frequency or severity increases. Patient was informed and verbally consented to the use of an ambient scribe for clinic note documentation during this visit. I discussed with the patient the possible causes of tension-type headaches, likely due to lifestyle factors including early waking patterns. Non-pharmacological interventions were suggested, alongside continued use of OTC medication as needed and the exploration of other lifestyle-related triggers. We agreed on establishing a more consistent sleep routine over weekends. Regarding the cough, reassurance was provided given the absence of red flags; however, self-monitoring was recommended. A tetanus booster was agreed upon for updated immunization status, particularly important given the last over 10 years ago. Orders: Orders T Spot TB Today Z11.1 - Encounter for screening for respiratory tuberculosis Medications: New sumatriptan succinate do not exceed 8 doses per 24 hrs 25 mg PO Q2-4H 30 days PRN 9 tabs 1RF migraine headache Patient Instructions: - Receive tetanus vaccination today. - Continue monitoring dietary intake and adjust portion sizes as discussed. - Maintain a sleep schedule to see if it alleviates headache occurrence. - Track the frequency and severity of cough and headaches, report any changes during the next follow-up.
== END 2024-08-07 09:30 | disposition home or self-care (01) ==
PROVIDERS: PCP Internal Medicine; Visit Provider Internal Medicine
DX: Z00.00 Encounter for general adult medical examination without abnormal findings (principal); G44.209 Tension-type headache, unspecified, not intractable

== ENCOUNTER → 2024-08-07 09:03 | Outpatient (BNVA) | payer OTHER, SELFPAY | PROVIDERS: PCP Internal Medicine; Visit Provider Internal Medicine | DX: Z00.00 Encounter for general adult medical examination without abnormal findings (principal); G44.209 Tension-type headache, unspecified, not intractable | CPT/HCPCS: 96127; 99212; 99395 ==

== ENCOUNTER 2024-08-07 09:42 | Outpatient (REF) | payer OTHER, SELFPAY ==
[2024-08-07 12:57] LABS: PSA,Total (Free>4and<10) 0.36 ng/mL (0.00-4.00)
[2024-08-10 13:17] LABS: TS Negative Control Passed; TS Panel A 0; TS Panel B 0; TS Positive Control Passed; TSpotTB Negative (Negative)
== END 2024-08-07 09:43 | disposition home or self-care (01) ==
LOC: HO.LAB 09:42
PROVIDERS: PCP Internal Medicine; Visit Provider Internal Medicine
DX: N39.44 Nocturnal enuresis (principal); Z11.1 Encounter for screening for respiratory tuberculosis
CPT/HCPCS: 36415; 84153; 86481

== ENCOUNTER 2025-01-02 09:15 | Outpatient (AMB) | payer OTHER, SELFPAY ==
[2025-01-02 09:19] VITALS: BP 130/84; BMI 32.4
--- NOTE | 2025-01-02 09:19 | MHC.PC.OV ---
Vital Signs 01/02/25 09:19 Height 6 ft 2 in Weight 252 lb BMI 32.4 BP 130/84 Blood Pressure Location Lt brachial Position Sitting Intake Visit Reasons: Urologist referral Christmas Tree Grader Required: No Accompanied by: Spouse Allergies No Known Allergies Allergy (Verified 01/02/25 09:34) Medication List - Last Reconciled 01/02/25 by Dionne Dixon MD ascorbate calcium (vitamin C) 500 mg PO DAILY ibuprofen 600 mg PO Q8H PRN omega-3 fatty acids 500 mg PO DAILY sumatriptan succinate 25 mg PO Q2-4H PRN 30 days Tobacco use date assessed: 07/19/24 Dental Screening Dental Screen Date: 07/19/24 HPI HPI Comments History of Present Illness Details The patient is a 39-year-old male presenting with erectile dysfunction. The condition started about a month and a half ago, with difficulties in maintaining an erection, causing significant anxiety. The patient was informed about factors affecting testosterone levels, such as weight and certain medications, though he does not consume alcohol or opioids. Testosterone testing was recommended to be done in the morning for optimal accuracy. [facility] Medical History (Updated 01/02/25 @ 09:41 by Dionne Dixon MD) Nocturnal enuresis Nocturia Urinary incontinence Nocturnal hypoxemia OLIVIA (obstructive sleep apnea) Right arm pain Obesity (BMI 35.0-39.9 without comorbidity) Daytime sleepiness Blurry vision Mood disorder History of hypoglycemia Bloody stools Hemorrhoid Obesity Surgical History History of tooth extraction Family History Mother No problems noted. Father No problems noted. Social History Housing: House Alcohol intake: never Patient Tobacco Use Status: Never used Tobacco e-Cigarette/Vaping Use: Never Used Second Hand Smoke Exposure: No service: No Current occupational status: employed Current occupational exposures/hazards: No Cognitive needs: No Hearing needs: No Vision needs: No Questionnaire Thrive Questionnaire Date Thrive assessed: 08/07/24 I am a: Patient What is your living situation today?: I have a steady place to live Within the past 12 months, did the food you bought not last and you didn't have the money to get more?: Never true Within the past 12 months, did you worry whether your food would run out before you got money to buy more?: Never true Do you have trouble paying for medicines?: I choose not to answer this question Do you have trouble getting transportation to medical appointments?: No Do you have trouble paying your heating and electricity bill?: No Do you have trouble taking care of your child, family member or friend?: No Do you have trouble with day-to-day activities such as bathing, preparing meals, shopping, managing finances, etc.?: No Are you currently unemployed and looking for a job?: No Are you interested in more education?: No Please select the resources that you would like help with: None Currently or been in a relationship where the following occur: I choose not to answer THRIVE Score: 0 LISY-7 AMB Questionnaire LISY-7 Date LISY - 7 assessed: 08/07/24 Source: Developed by Drs. Christiano Dawkins, Stacey Cuevas, Oniel Mcgraw and colleagues, with an educational keri from [employer]. Review of Systems Const All systems reviewed & are unremarkable except as noted in HPI and below Card Denies chest pain at rest, Denies chest pain with activity, Denies edema, Denies irregular heart rhythm, Denies claudication, Denies dyspnea, Denies dyspnea on exertion, Denies orthopnea, Denies paroxysmal nocturnal dyspnea and Denies slow heart rate Resp Denies cough, Denies dyspnea and Denies dyspnea on exertion GI Denies abdominal pain, Denies change in bowel habits, Denies excessive flatus, Denies nausea and Denies vomiting Denies urinary hesitancy, Denies urinary incontinence and Denies urinary urgency Musc Denies atrophy, Denies deformity and Denies limited range of motion Physical exam (Primary Care) Vital Signs: Last Vital Signs BP 130/84 01/02/25 09:19 BMI result Body Mass Index 32.4 Tobacco/Smoking Status: Tobacco use Status Tobacco use date assessed 07/19/24 01/02/25 09:25 Patient Tobacco Use Status Never used Tobacco 01/02/25 09:25 Tobacco use type 07/14/22 15:49 e-Cigarette/Vaping Use Never Used 01/02/25 09:25 Thrive Assessment: Date of Thrive Assessment Date Thrive assessed 08/07/24 01/02/25 09:25 Currently or been in a relationship where the following occur: I choose not to answer Resp Effort & Inspection: normal respiratory effort Auscultation: clear to auscultation bilaterally Cardio Jugular venous distension: no JVD Rate: regular rate Rhythm: regular rhythm Heart sounds: S1 normal heart sound present and S2 normal heart sound present Extrem General: Yes full ROM Coding Level of Care Code Est Pt Level 3 (50791) Complex EM visit Add On G2211 Diagnoses Erectile dysfunction N52.9 Time Spent (min) 19 Assessment & Plan Assessment & Plan (1) Erectile dysfunction: Code(s): N52.9 - Male erectile dysfunction, unspecified Category: Medical Plan The plan involves conducting a testosterone level test in the morning for accuracy, considering hormonal fluctuations. Lifestyle modifications, including weight management, were discussed as potential influences on testosterone levels, and counseling was recommended as a supportive intervention. Patient was informed and verbally consented to the use of an ambient scribe for clinic note documentation during this visit. Orders: Orders Testosterone, Free/Total Today N52.9 - Male erectile dysfunction, unspecified Medications: New magnesium oxide 400 mg PO BEDTIME 90 tabs 1RF 90 days Discontinued sumatriptan succinate do not exceed 8 doses per 24 hrs Discontinued Reason: Patient Completed Course 25 mg PO Q2-4H 30 days PRN 9 tabs 1RF migraine headache
== END 2025-01-02 09:47 | disposition home or self-care (01) ==
LOC: HO.HMCH 09:16
PROVIDERS: PCP Internal Medicine; Visit Provider Internal Medicine
DX: N52.9 Male erectile dysfunction, unspecified (principal)

== ENCOUNTER → 2025-01-02 09:15 | Outpatient (BNVA) | payer OTHER, SELFPAY | PROVIDERS: PCP Internal Medicine; Visit Provider Internal Medicine | DX: G47.33 Obstructive sleep apnea (adult) (pediatric) (principal); N52.9 Male erectile dysfunction, unspecified | CPT/HCPCS: 99212 ==

== ENCOUNTER 2025-05-14 11:00 | Outpatient (AMB) | payer OTHER, SELFPAY ==
[2025-05-14 11:30] VITALS: BP 170/110; PULSE 82; TEMP 36.3; O2SAT 95; BMI 34.8
--- NOTE | 2025-05-14 11:30 | A.OFFPC_ITS ---
Vital Signs 05/14/25 11:30 Height 6 ft 2 in Weight 271 lb 6 oz BMI 34.8 BP 170/110 H Blood Pressure Location Rt brachial Position Sitting Pulse 82 Pulse Source Pulse Oximeter Temp 97.3 F Temp Source Temporal Artery Scan Pulse Oximetry (%) 95 Oxygen Delivery Method Room Air Intake Visit Reasons: pt is having back pain, feels like he is chocking Allergies No Known Allergies Allergy (Verified 05/14/25 11:33) Medication List - Last Reconciled 05/14/25 by Wilder Thompson MD ascorbate calcium (vitamin C) 500 mg PO DAILY ibuprofen 600 mg PO Q8H PRN magnesium oxide 400 mg PO BEDTIME 90 days omega-3 fatty acids 500 mg PO DAILY Tobacco use date assessed: 05/14/25 Dental Screening Dental Screen Date: 05/14/25 Did you have a dental visit in the last 12 months?: Yes Did you have a dental problem in the last 6 months where you did not have access to dental care?: No Was dental information given to patient?: Patient has dentist HPI HPI Comments History of Present Illness Details The patient is a 39-year-old male presenting with seasonal symptoms, including congestion and nocturnal arousal secondary gasping for air. These nocturnal episodes prompt him to ambulate, drink water, and relocate to a chair to sleep for the remainder of the night. His has told him he snores sometimes. The patient has a history of obstructive sleep apnea, diagnosed approximately three years ago, but he did not complete the prescribed sleep study at that time. He also reports the onset of back pain three days ago, which is a recurrent issue. He self-medicates with Aleve liquid gels for the pain. His current supplement regimen includes Vitamin C, omega-3, and magnesium. The patient denies a prior history of hypertension and was surprised by the elevated reading during this visit (170/100). [facility] Medical History Nocturnal enuresis Nocturia Urinary incontinence Nocturnal hypoxemia OLIVIA (obstructive sleep apnea) Right arm pain Obesity (BMI 35.0-39.9 without comorbidity) Daytime sleepiness Blurry vision Mood disorder History of hypoglycemia Bloody stools Hemorrhoid Obesity Surgical History History of tooth extraction Family History Mother No problems noted. Father No problems noted. Social History Housing: House Alcohol intake: never Patient Tobacco Use Status: Never used Tobacco e-Cigarette/Vaping Use: Never Used Second Hand Smoke Exposure: No service: No Current occupational status: employed Current occupational exposures/hazards: No Cognitive needs: No Hearing needs: No Vision needs: No Questionnaire PHQ-9 Over the last 2 weeks, how often have you been bothered by any of the following problems? 1. Little interest or pleasure in doing things: not at all 2. Feeling down, depressed, or hopeless: not at all 3. Trouble falling or staying asleep, or sleeping too much: not at all 4. Feeling tired or having little energy: not at all 5. Poor appetite or overeating: not at all 6. Feeling bad about yourself - or that you are a failure or have let yourself or your family down: not at all 7. Trouble concentrating on things, such as reading the newspaper or watching television: not at all 8. Moving or speaking so slowly that other people could have noticed. Or the opposite - being so fidgety or restless that you have been moving around a lot more than usual: not at all 9. Thoughts that you would be better off or of hurting yourself in some way: not at all Total score: 0 Depression Screening Interpretation: Negative Depression Screening Done: Yes Source: Developed by Drs. Christiano Dawkins, Stacey Cuevas, Oniel Mcgraw and colleagues, with an educational keri from [employer]. Thrive Questionnaire Date Thrive assessed: 08/07/24 I am a: Patient What is your living situation today?: I have a steady place to live Within the past 12 months, did the food you bought not last and you didn't have the money to get more?: Never true Within the past 12 months, did you worry whether your food would run out before you got money to buy more?: Never true Do you have trouble paying for medicines?: I choose not to answer this question Do you have trouble getting transportation to medical appointments?: No Do you have trouble paying your heating and electricity bill?: No Do you have trouble taking care of your child, family member or friend?: No Do you have trouble with day-to-day activities such as bathing, preparing meals, shopping, managing finances, etc.?: No Are you currently unemployed and looking for a job?: No Are you interested in more education?: No Please select the resources that you would like help with: None Currently or been in a relationship where the following occur: I choose not to answer THRIVE Score: 0 AUDIT C Alcohol Use Questionnaire (AUDIT-C) 1. How often do you have a drink containing alcohol?: Never Total Score: 0 LISY-7 AMB Questionnaire LISY-7 Date LISY - 7 assessed: 08/07/24 Feeling nervous, anxious, or on edge: 0 = Not at all Not being able to stop or control worryin = Not at all Worrying too much about different things: 0 = Not at all Trouble relaxin = Not at all Being so restless that it is hard to sit still: 0 = Not at all Becoming easily annoyed or irritable: 0 = Not at all Feeling afraid as if something awful might happen: 0 = Not at all Total LISY-7 score (0-4 normal; 5-9 mild; 10-14 moderate; 15-21 severe): 0 Source: Developed by Drs. Christiano Dawkins, Stacey Cuevas, Oniel Mcgraw and colleagues, with an educational keri from [employer]. Review of Systems Const Details: As per HPI. Physical exam (Primary Care) Vital Signs: Last Vital Signs Temp 97.3 F 05/14/25 11:30 Pulse 82 05/14/25 11:30 BP 170/110 H 05/14/25 11:30 Pulse Ox 95 05/14/25 11:30 Oxygen Delivery Method Room Air 05/14/25 11:30 BMI result Body Mass Index 34.8 Tobacco/Smoking Status: Tobacco use Status Tobacco use date assessed 05/14/25 05/14/25 11:34 Patient Tobacco Use Status Never used Tobacco 05/14/25 11:34 Tobacco use type 07/14/22 15:49 e-Cigarette/Vaping Use Never Used 05/14/25 11:34 PHQ-9: PHQ-9 Score PHQ-9: Total score 0 05/14/25 11:34 Depression Screening Interpretation: Negative Thrive Assessment: Date of Thrive Assessment Date Thrive assessed 08/07/24 05/14/25 11:34 Currently or been in a relationship where the following occur: I choose not to answer Const Other: Pertinent findings are in BOLD GENERAL APPEARANCE NAD, activity normal for age, well developed/ well nourished, no cyanosis, pallor, or diaphoresis. EYES lids/conjunctiva normal. EARS/NOSE/THROAT Mucous membranes moist, nares normal, lips/teeth normal uvula midline without oral pharyngeal erythema, exudate or swelling TMs normal bilaterally. No lymphangitis/lymphedema. Malampati class 2. HEAD/NECK normocephalic atraumatic, no facial trauma, neck is supple. RESPIRATORY respiratory effort normal, speaks in full sentences, no tripod position, no accessory muscle use. Lungs clear to auscultation without rhonchi, wheezes, rales CARDIAC Regular rate and rhythm, no edema. ABDOMINAL Soft, ND/NT. No evidence of fluid wave. No pulsatile masses on exam, rebound tenderness, Jaquez sign or pain over Mcburney's point. MUSCLES/EXTREMITIES No abnormal range of motion, no swelling. SKIN Warm, pink and dry. No rashes, dermatoses, petechiae or lesions. NEUROLOGICAL Speech is clear and appropriate. Normal level of consciousness. Gait and coordination are normal. 5/5 strength in all extremities. PSYCH Normal mood and affect. Judgement/competence is appropriate Coding Level of Care Code Est Pt Level 4 (96902) Diagnoses Snoring R06.83 Left-sided low back pain without sciatica, unspecified chronicity M54.50 Back pain location: low back pain Chronicity: unspecified Back pain laterality: left Sciatica presence: without sciatica Primary hypertension I10 Hypertension type: primary hypertension Seasonal allergic rhinitis, unspecified trigger J30.2 Allergic rhinitis trigger: unspecified Allergic rhinitis seasonality: seasonal Assessment & Plan Assessment & Plan (1) Snoring: Code(s): R06.83 - Snoring Category: Medical Plan: - The patient's reported symptoms of nocturnal arousal with a sensation of needing air are consistent with his prior diagnosis of obstructive sleep apnea. - Untreated sleep apnea is a likely contributor to his newly noted hypertension. - Plan to refer the patient to Sleep Medicine for a formal sleep study, as a previous one was not completed. (2) Back pain: Code(s): M54.9 - Dorsalgia, unspecified Category: Medical Qualifiers: Back pain location: low back pain Chronicity: unspecified Back pain laterality: left Sciatica presence: without sciatica Qualified Code(s): M54.50 - Low back pain, unspecified Plan: - The patient reports recurrent back pain, with the current episode lasting for the past three days. - He reports self-managing the pain with snaj-ghx-ysrhduc Aleve. - No changes to the management plan were made during the visit. (3) HTN (hypertension): Code(s): I10 - Essential (primary) hypertension Category: Medical Qualifiers: Hypertension type: primary hypertension Qualified Code(s): I10 - Essential (primary) hypertension Plan: - The patient was found to have a blood pressure of 160/100 mmHg during the visit, which he states is a new finding. - The etiology is suspected to be secondary to untreated obstructive sleep apnea. - Initiation of antihypertensive medication will be deferred at this time. - A follow-up visit is scheduled in four weeks to re-evaluate his blood pressure. (4) Allergic rhinitis: Code(s): J30.9 - Allergic rhinitis, unspecified Category: Medical Qualifiers: Allergic rhinitis trigger: unspecified Allergic rhinitis seasonality: seasonal Qualified Code(s): J30.2 - Other seasonal allergic rhinitis Plan: - The patient complains of seasonal congestion and a sensation of something being stuck in his throat. - He has been using an jqjv-yjq-blsyzlf medication for congestion. - Plan to prescribe Claritin 10 mg daily to be taken as needed at night for symptomatic relief. Plan I discussed with the patient that his symptoms of waking up at night short of breath are highly suggestive of obstructive sleep apnea, a condition he was diagnosed with previously but for which he did not complete a workup. I explained that untreated sleep apnea can also be a cause of high blood pressure, which likely explains his elevated reading of 160/100 mmHg today. We will proceed with a referral to a sleep specialist to conduct another sleep study. Regarding his hypertension, the patient would like to hold off on starting medication at this time and will instead monitor his blood pressure. I will see him back in the clinic in four weeks for a recheck. For his feelings of congestion, I prescribed Claritin 10 mg to be taken as needed at night, and I advised him that it might cause some mild drowsiness. Orders: Referrals Sleep Medicine Referral R06.83 - Snoring Medications: New loratadine (Claritin) 10 mg PO DAILY PRN 60 tabs 2RF allergy symptoms
--- OUTSIDE RECORDS SUMMARY | 2025-05-14 13:17 | XMS_ITS | Clinical Summary ---
Author Organization [facility] Address [address] [place] [phone] Phone Care Team Providers Care Hotel Night Auditor Name Role Phone Dionne Stallings MD Primary Care Provid er Allergies No known active allergies Medications omega 4-ukw-zgx-fish oil 1,000 mg (120 mg-180 mg) Cap Take 1 capsule by mouth daily. Active ascorbic acid (VITAMIN C ORAL) Take by mouth. Active cholecalciferol , vitamin D3, (VITAMIN D3 ORAL) Take by mouth. Active VITAMIN E ACETATE ORAL Take by mouth. Active Active Problems Problem Noted Date Diagnosed Date Hypoglycemia 03/28/2021 Assessment & Plan (05/02/2021 12:34 PM EDT): I did not find an etiology for hypoglycemia. I really suspected that the patient was going to be hyperinsulinemic possibly prediabetic because he was having postprandial hyperglycemia but does not the case. So at this point I would not do any further work-up and hope that he continues to do well. Assessment & Plan (03/28/2021 12:44 PM EDT): Is a patient that has postprandial hyperglycemia on occasions not consistently. He has not noticed if the postprandial hyperglycemia occur after very heavy carbohydrate meal. But is usually the case that patients who have a very high carbohydrate meal produce a lot of insulin and have a glucose dumping syndrome. So they may develop hypoglycemia postprandially. This is usually seen with insulin resistant patients and prediabetics. He does not have family history of diabetes and so far she knows he is not prediabetic. So I would like to check hemoglobin A1c. I do not believe that he has insulinoma because he has not had fasting hypoglycemia but I will check C-peptide, insulin level and proinsulin levels. I will check for growth hormone deficiency with IGF-I levels. I am going to check fasting glucose level. I will do hypoglycemic screen for agents that resulted in hypoglycemia though the patient has told me he has not used these. He states that he is fasting today so he will do the lab work today I will give him a follow-up appointment in 4 weeks time. Family History Medical History Relation Comments No Known Problems Father Hypertension Mother Relation Status Comments Father Alive Mother Alive Social History Tobacco Use Types Packs/Day Years Used Date Smoking Tobacco: Never Smokeless Tobacco: Never Alcohol Use Standard Drinks/Week Comments Never 0 (1 standard drink = 0.6 oz pur e alcohol) Education Answer Date Recorded Are you interested in more education? Not on kelly e 10/31/2022 Are you concerned about learning? Not on file 10/31/2022 No 10/31/2022 No 10/31/2022 Digital Access Answer Date Recorded No 11/29/2022 No 11/29/2022 No 11/29/2022 Reliable internet access at home? Not on file 11/29/2022 Device with a working camera? Not on file Sex and Gender Information Value Date Recorded Sex Assigned at Not on file Legal Sex Male 2:06 PM EDT Gender Identity Not on file Sexual Orientation Not on file Last Filed Vital Signs Vital Sign Reading Time Taken Comments Blood Pressure 122/70 05/02/2021 11:47 AM EDT Pulse 84 05/02/2021 11:47 AM EDT Temperature - - Respiratory Rate - - Oxygen Saturation 97% 05/02/2021 11:47 AM EDT Inhaled Oxygen Concentration - - Weight 113.4 kg (250 lb) 05/02/2021 11:47 AM EDT Height 177.5 cm (5' 9.88 ) 05/02/2021 11:47 AM E DT Body Mass Index 35.99 05/02/2021 11:47 AM EDT Plan of Treatment Health Maintenance Due Date Last Done Comments Adult Td,Tdap Booster 1984 LIPID PANEL 1984 DEPRESSION SCREENING 1996 HEPATITIS C SCREENING 2002 HIV ONE-TIME SCREENING (18-6 5 YEARS) 2002 INFLUENZA VACCINE (#1) 2025 COVID-19 VACCINE (2 2024-2 6 season) 2025 01/16/2021 SMOKING STATUS SCREENING (On ce After 26 Yrs) Completed 03/28/2021 HEPATITIS A VACCINES Aged Out No long er eligible based on patient's age to complete this topic HIB VACCINES Aged Out No longer eligi ble based on patient's age to complete this topic IPV VACCINES Aged Out No longer eligi ble based on patient's age to complete this topic MENINGOCOCCAL VACCINES (ACWY) Aged Out No longer eligible based on patient's age to complete this topic MENINGOCOCCAL VACCINES (B) Aged Out N o longer eligible based on patient's age to complete this topic PNEUMOCOCCAL VACCINES (0-49 years) Aged Out No longer eligible based on patient's age to complete this topic Medical Devices Not on file Insurance [place] [address] [place] [id number] [place] [address] [place] [address] [place] [place] [address] [place] [place] [address] Care Teams Hotel Night Auditor Relationship Specialty Start Date End Date Dionne Stallings MD [address] [place] [address] PCP - General Internal Medicine 02/19/21 Additional Source Comments The information contained in this document represents components of the legal health record. It is not the complete legal health record.[facility]
== END 2025-05-14 12:00 | disposition home or self-care (01) ==
LOC: HO.HMCH 11:01
PROVIDERS: PCP Internal Medicine; Visit Provider Internal Medicine
DX: R06.83 Snoring (principal); M54.50 Low back pain, unspecified; I10 Essential (primary) hypertension; J30.2 Other seasonal allergic rhinitis

== ENCOUNTER 2025-05-14 11:00 | Outpatient (REF) | payer OTHER, SELFPAY ==
[2025-05-19 16:09] LABS: Testosterone, Free 39.8 pg/mL (35.0-155.0)
== END 2025-05-14 11:01 | disposition home or self-care (01) ==
LOC: HO.LAB 11:00
PROVIDERS: Absent Provider Internal Medicine; PCP Internal Medicine; Visit Provider Internal Medicine
DX: N52.9 Male erectile dysfunction, unspecified (principal); R06.83 Snoring; M54.50 Low back pain, unspecified; I10 Essential (primary) hypertension; J30.2 Other seasonal allergic rhinitis; Z79.899 Other long term (current) drug therapy
CPT/HCPCS: 36415; 84402; 84403

== ENCOUNTER 2025-06-18 14:01 | Outpatient (AMB) | payer OTHER, SELFPAY ==
[2025-06-18 14:24] VITALS: BP 150/84; PULSE 93; O2SAT 95; BMI 36.1
--- NOTE | 2025-06-18 14:24 | HO.NEPHOV ---
Vital Signs 06/18/25 14:24 Height 6 ft 2 in Weight 281 lb BMI 36.1 BP 150/84 H Blood Pressure Location Lt brachial Position Sitting Pulse 93 Pulse Source Pulse Oximeter Pulse Oximetry (%) 95 Oxygen Delivery Method Room Air Intake Visit Reasons: INP: HTN URGENT Squaring Machine Operator Required: No Accompanied by: Self / Same As Patient Allergies No Known Allergies Allergy (Verified 06/18/25 14:26) Medication List - Last Reconciled 06/18/25 by Gabe Florentino MD ascorbate calcium (vitamin C) 500 mg PO DAILY ibuprofen 600 mg PO Q8H PRN loratadine (Claritin) 10 mg PO DAILY PRN magnesium oxide 400 mg PO BEDTIME 90 days omega-3 fatty acids 500 mg PO DAILY HPI Comments Details: Pleasant 39-year-old man referred for evaluation of hypertension. He has a history of obesity. No documented history of hypertension. Recently during his visit with his primary care physician he was found to have a systolic blood pressure 1 70 mm Hg and hence this referral. He has gained some weight since summer. Currently weighs 280 lb. He says that he used to weigh 240 lb. He has been watching his blood pressure at home and the systolic blood pressure is between 140 and 150 mm Hg. He has a history of snoring. He is awaiting sleep evaluation. 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 He does not smoke or consume any alcohol. His father and paternal uncle has hypertension no known renal history. [facility] Medical History (Reviewed 05/14/25 @ 11:33 by Sarai Olea [facility]) Nocturnal enuresis Nocturia Urinary incontinence Nocturnal hypoxemia OLIVIA (obstructive sleep apnea) Right arm pain Obesity (BMI 35.0-39.9 without comorbidity) Daytime sleepiness Blurry vision Mood disorder History of hypoglycemia Bloody stools Hemorrhoid Obesity Surgical History History of tooth extraction Family History Mother No problems noted. Father No problems noted. Social History Housing: House Alcohol intake: never Patient Tobacco Use Status: Never used Tobacco e-Cigarette/Vaping Use: Never Used Second Hand Smoke Exposure: No service: No Current occupational status: employed Current occupational exposures/hazards: No Cognitive needs: No Hearing needs: No Vision needs: No Review of Systems Const Denies fever(s) and Denies weight loss Card Denies chest pain Resp Denies cough and Denies hemoptysis GI Denies abdominal pain, Denies diarrhea and Denies nausea Musc Denies back pain Neuro Denies focal weakness Physical Exam Vital Signs: Last Vital Signs Pulse 93 06/18/25 14:24 BP 150/84 H 06/18/25 14:24 Pulse Ox 95 06/18/25 14:24 Oxygen Delivery Method Room Air 06/18/25 14:24 BMI result Body Mass Index 36.1 Comfortable Obese Neck supple no JVD. Lungs entry equal no rales. Heart S1-S2 heard no gallop or rub. Abdomen soft nontender. Neuro alert awake oriented. No asterixis. Extremities no edema. Assessment & Plan Assessment & Plan (1) HTN (hypertension): Code(s): I10 - Essential (primary) hypertension Category: Medical Qualifiers: Hypertension type: primary hypertension Qualified Code(s): I10 - Essential (primary) hypertension Plan Middle-aged man with obesity and newly diagnosed hypertension. Superimposed white coat hypertension should be evaluated. Obesity might be playing a role. Other possibility would include obstructive sleep apnea. Recommendations Obtain 24 hour ambulatory blood pressure monitoring. Encouraged him to stay on low-sodium diet. He will benefit from weight loss. Encouraged him to increase his physical activity and to cut back on calorie intake. Await sleep evaluation. Correcting sleep apnea would also help lowering his blood pressure. He will returned to office after the 24 hour ambulatory blood pressure monitoring and based on this I will start him on an antihypertensive medication as needed Orders: Orders UA and rflx microscopic Today I10 - Essential (primary) hypertension Basic Metabolic Panel Today I10 - Essential (primary) hypertension AMB 24 HR B/P Monitor PLACEMENT Today I10 - Essential (primary) hypertension Coding Level of Care Code New Pt Level 4 (88337) Diagnoses Primary hypertension I10 Hypertension type: primary hypertension
--- OUTSIDE RECORDS SUMMARY | 2025-06-18 20:27 | XMS_ITS | Clinical Summary ---
Author Organization [facility] Address [address] [place] [phone] Phone Care Team Providers Care Railroad Inspector Name Role Phone Dionne Stallings MD Primary Care Provid er Allergies No known active allergies Medications omega 0-tyf-vii-fish oil 1,000 mg (120 mg-180 mg) Cap [...] Devices Not on file Insurance [place] [address] [place] [address] [place] [address] [place] [id number] [employer] Care Teams Railroad Inspector Relationship Specialty Start Date End Date Dionne Stallings MD [address] [place] [address] PCP - General Internal Medicine 02/19/21 Additional Source Comments The information contained in this document represents components of the legal health record. It is not the complete legal health record.[facility]
== END 2025-06-18 15:55 | disposition home or self-care (01) ==
LOC: HO.HKA 14:02
PROVIDERS: PCP Internal Medicine; Referring Provider Internal Medicine; Visit Provider Internal Medicine Hypertension Specialist
DX: I10 Essential (primary) hypertension (principal)
CPT/HCPCS: 99204

== ENCOUNTER 2025-06-18 14:01 | Outpatient (REF) | payer OTHER, SELFPAY ==
[2025-06-18 16:20] LABS: Anion Gap 11 (12-20); Blood Urea Nitrogen 16 mg/dL (9-16); Calcium 9.5 mg/dL (8.4-10.2); Carbon Dioxide 31 mmol/L (22-29); Chloride 105 mmol/L (96-108); Estimated Glomerular Filt Rate > 60; Potassium 4.2 mmol/L (3.3-5.1); Sodium 143 mmol/L (135-145)
[2025-06-18 16:31] LABS: Appearance Urine Error; Glucose Urine UA Negative (Negative); PH 5.5 (5.0-9.0); Specific Gravity - Urine 1.025 (1.005-1.025)
== END 2025-06-18 14:02 | disposition home or self-care (01) ==
LOC: HO.LAB 14:01
PROVIDERS: PCP Internal Medicine; Referring Provider Internal Medicine; Visit Provider Internal Medicine Hypertension Specialist
DX: I10 Essential (primary) hypertension (principal)
CPT/HCPCS: 36415; 80048; 81003; 99202

== ENCOUNTER 2025-06-19 14:24 | Outpatient (AMB) | payer OTHER, SELFPAY ==
--- NOTE | 2025-06-19 14:29 | HO.NEPHOV ---
Vital Signs 06/19/25 14:29 Height 6 ft 2 in Intake Visit Reasons: BPM Results Accompanied by: Self / Same As Patient Allergies No Known Allergies Allergy (Verified 06/19/25 14:29) Medication List - Last Reconciled 06/19/25 by Gabe Florentino MD ascorbate calcium (vitamin C) 500 mg PO DAILY ibuprofen 600 mg PO Q8H PRN loratadine (Claritin) 10 mg PO DAILY PRN magnesium oxide 400 mg PO BEDTIME 90 days omega-3 fatty acids 500 mg PO DAILY HPI Comments Details: Pleasant 39-year-old man referred for evaluation of hypertension. He has a history of obesity. No documented history of hypertension. Recently during his visit with his primary care physician he was found to have a systolic blood pressure 1 70 mm Hg and hence this referral. He has gained some weight since summer. Currently weighs 280 lb. He says that he used to weigh 240 lb. He has been watching his blood pressure at home and the systolic blood pressure is between 140 and 150 mm Hg. He has a history of snoring. He is awaiting sleep evaluation. 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 He does not smoke or consume any alcohol. His father and paternal uncle has hypertension no known renal history. 06/19/25 Underwent ABP M [facility] Medical History Nocturnal enuresis Nocturia Urinary incontinence Nocturnal hypoxemia OLIVIA (obstructive sleep apnea) Right arm pain Obesity (BMI 35.0-39.9 without comorbidity) Daytime sleepiness Blurry vision Mood disorder History of hypoglycemia Bloody stools Hemorrhoid Obesity Surgical History History of tooth extraction Family History Mother No problems noted. Father No problems noted. Social History Housing: House Alcohol intake: never Patient Tobacco Use Status: Never used Tobacco e-Cigarette/Vaping Use: Never Used Second Hand Smoke Exposure: No service: No Current occupational status: employed Current occupational exposures/hazards: No Cognitive needs: No Hearing needs: No Vision needs: No Office Procedures 24 B/P Monitor Interpretation Details: ABPM stage 1 HTN Minimal dipping Superimposed Whitr Coat effect CPT: 32539 24 Hour Blood Pressure Monitor Reading Procedure code (CPT) selection complete Results Reviewed Nephrology Results: Sodium, (135-145) 143 mmol/L 06/18/25 Potassium, (3.3-5.1) 4.2 mmol/L 06/18/25 Chloride, (96-108) 105 mmol/L 06/18/25 Carbon Dioxide, (22-29) 31 mmol/L H 06/18/25 BUN, (9-16) 16 mg/dL 06/18/25 Creatinine, (0.5-1.4) 0.88 mg/dL 06/18/25 Calcium, (8.4-10.2) 9.5 mg/dL 06/18/25 Urine Protein, (Neg-Trace) Trace mg/dL 06/18/25 Assessment & Plan Assessment & Plan (1) HTN (hypertension): Code(s): I10 - Essential (primary) hypertension Category: Medical Qualifiers: Hypertension type: primary hypertension Qualified Code(s): I10 - Essential (primary) hypertension (2) Obesity: Code(s): E66.9 - Obesity, unspecified Category: Medical Qualifiers: Body mass index: BMI 33.0-33.9 Obesity classification: adult class 1 (BMI 30 - 34.9) Serious obesity comorbidity presence: without serious comorbidity (3) Elevated blood pressure reading in office with diagnosis of hypertension: Code(s): I10 - Essential (primary) hypertension Category: Medical Plan Middle-aged man with obesity and newly diagnosed hypertension. Superimposed white coat hypertension should be evaluated. Obesity might be playing a role. Other possibility would include obstructive sleep apnea. Based on 24 hour ambulatory blood pressure monitoring I will start him on valsartan 80 mg once a day. Encouraged him to stay on low-sodium diet. He will benefit from weight loss. Encouraged him to increase his physical activity and to cut back on calorie intake. Await sleep evaluation. Correcting sleep apnea would also help lowering his blood pressure. 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
--- OUTSIDE RECORDS SUMMARY | 2025-06-19 18:41 | XMS_ITS | Clinical Summary ---
Author Organization [facility] Address [address] [place] [address] [place] [id number] Phone Care Team Providers Care Civil Engineer In Training Name Role Phone Dionne Stallings MD Primary Care Provid er Allergies No known active allergies Medications omega 8-wra-evi-fish oil 1,000 mg (120 mg-180 mg) Cap [...] Devices Not on file Insurance [place] [address] [place] [address] [place] [address] [place] [address] [employer] ACO ACO ACO Care Teams Civil Engineer In Training Relationship Specialty Start Date End Date Dionne Stallings MD [address] [place] [address] PCP - General Internal Medicine 02/19/21 Additional Source Comments The information contained in this document represents components of the legal health record. It is not the complete legal health record.[facility]
== END 2025-06-19 14:45 | disposition home or self-care (01) ==
LOC: HO.HKA 14:25
PROVIDERS: PCP Internal Medicine; Visit Provider Internal Medicine Hypertension Specialist
DX: I10 Essential (primary) hypertension (principal); E66.9 Obesity, unspecified
CPT/HCPCS: 93790; 99214

== ENCOUNTER → 2025-06-19 14:24 | Outpatient (BNVA) | payer OTHER, SELFPAY | PROVIDERS: PCP Internal Medicine; Visit Provider Internal Medicine Hypertension Specialist | DX: I10 Essential (primary) hypertension (principal); E66.9 Obesity, unspecified; Z68.33 Body mass index [BMI] 33.0-33.9, adult | CPT/HCPCS: 93786; 93788; 99212 ==